=== PATIENT | male | born 1940 | race Caucasian/White ===

== ENCOUNTER 2017-03-05 19:52 | Emergency (ER) | payer MEDICARE, BC ==
[~2017-03-05] VITALS: Ht 180.3 cm; Wt 90.7 kg
[~2017-03-05 19:52] MED LIST: ASPIRIN; PROCARDIA10 MG; ZOCOR
== END 2017-03-05 21:20 | disposition home or self-care (01) ==
LOC: CED 19:52 → CFTX 19:52
DX: S81.812A Laceration without foreign body, left lower leg, initial encounter (principal); Z23 Encounter for immunization; Z79.82 Long term (current) use of aspirin; W26.0XXA Contact with knife, initial encounter; Y92.009 Unspecified place in unspecified non-institutional (private) residence as the place of occurrence of the external cause
CPT/HCPCS: 90471; 90715; 99283